=== PATIENT | male | born 1950 | race Caucasian/White ===

== ENCOUNTER 2017-02-13 13:19 | Emergency (ER) | payer OTHER ==
[~2017-02-13] VITALS: Ht 182.9 cm; Wt 102.0 kg
[~2017-02-13 13:19] MED LIST: ACETAMINOPHEN PO; ALAVERT PO; AMIODARONE PO; ASPIRIN PO; AVANDIA PO; CARDIZEM30 M1 PO; COLACE PO; COUMADIN PO; DIGOXIN125 MCG PO; FLEXERIL PO; GLUCOPHAGE XR500 MG PO; LANOXIN PO; LIPITOR PO; LISINOPRIL10 MG PO; OXYIR5 MG PO; TOPROL XL PO; TYLENOL EXTRA500 M1 PO; XARELTO20 MG PO; ZANTAC PO; ZOCOR PO
== END 2017-02-13 14:20 | disposition home or self-care (01) ==
LOC: CED 13:19
DX: S80.812A Abrasion, left lower leg, initial encounter (principal); L03.116 Cellulitis of left lower limb; Z88.1 Allergy status to other antibiotic agents; E11.9 Type 2 diabetes mellitus without complications; Z79.4 Long term (current) use of insulin; W26.9XXA Contact with unspecified sharp object(s), initial encounter; Y92.009 Unspecified place in unspecified non-institutional (private) residence as the place of occurrence of the external cause
CPT/HCPCS: 36415; 96361; 96374; 99283; J2405

== ENCOUNTER 2017-02-13 19:59 | Emergency (ER) | payer OTHER ==
--- NOTE | ~2017-02-13 | CT4 ---
[facility] A Service of [facility] RADIOLOGY TEXT RESULTS PATIENT: ANUEL MASON LOCATION: [facility] : 54 UNIT #: [id number] AGE: [address]: Osvaldo Eastman MD SEX: M ORDER DR: [id number] [facility] [address] [place], [place] [address] [id number] MR#: [id number] Acc #: [id number] NAME: ANUEL MASON. : 1950 SEX: M STUDY DATE/TIME: 02/13/2017 21:51 UNIT: [facility] ROOM: STUDY DESCRIPTION: CT Abd and Pelv Wo Cont Attending Physician: Osvaldo Eastman M.D. Referring Physician: Claudia Unger A.P.R.N. Ordering Physician: Osvaldo Eastman M.D. Primary Care Physician: Claudia Unger A.P.R.N. MEDICAL IMAGING REPORT This report is preliminary unless electronic signature is present EXAM CT abdomen and pelvis without contrast. INDICATIONS Left flank and kidney pain for the past 3 weeks with hematuria. PROCEDURE Unenhanced CT of the abdomen and pelvis. This CT exam was performed with one or more of the following radiation dose reduction techniques: automatic exposure control, adjustment of mA and/or kV according to patient size, and iterative reconstruction. COMPARISON None. FINDINGS Abdomen without contrast: Linear opacity in the right middle lobe with somewhat masslike opacities in both lung bases that have scattered areas of fat attenuation. The opacity in the left lung base measures 7.1 x 3.6 cm. The liver, spleen, adrenal glands, pancreas show no acute abnormality. There is a 7 mm calculus in the gallbladder, but no evidence for gallbladder inflammation. There are a few uncomplicated sigmoid diverticula. Appendix is normal. A 8 mm calculus in the proximal left ureter results in moderate hydronephrosis and perinephric stranding. Pelvis without contrast: No radiodense bladder calculus. No aggressive appearing bone lesion. IMPRESSION [facility] A Service of [facility] RADIOLOGY TEXT RESULTS PATIENT: ANUEL MASON LOCATION: [facility] #: [id number] : 54 UNIT #: [id number] AGE: [address]: Osvaldo Eastman MD SEX: M ORDER DR: 1. 8 mm obstructing calculus in the proximal left ureter with moderate hydronephrosis and perinephric stranding. 2. Lipoid pneumonia in the right middle lobe and both lung bases. Dictated by... Nicholas Argueta M.D. THIS IS AN ELECTRONICALLY VERIFIED REPORT Nicholas Argueta M.D. at 02/14/2017 9:54 PM EMILY/matti TD: 02/14/2017 06:52 JOB #: [id number] MEDICAL IMAGING REPORT Page 1 of 1 COPY
[2017-02-13 22:17] LABS: HEMATOCRIT 35.7 % (38.0-50.0); HEMOGLOBIN 11.7 gm/dL (13.0-16.0); MEAN CELL VOLUME 86.7 FL (83-96); MEAN CORPUSCULAR HEMOGLOBIN 28.4 PG (28-34); MEAN CORPUSCULAR HGB CONC 32.8 g/dL (30-36); MEAN PLATELET VOLUME 8.5 FL (6.5-11.5); RED BLOOD COUNT 4.12 X10e (3.90-5.60); RED CELL DISTRIBUTION WIDTH 13.3 % (11.0-15.5)
[2017-02-13 22:57] LABS: ALBUMIN SERUM 3.7 g/dL (3.5-5.0); BILIRUBIN,TOTAL 0.8 mg/dL (0.2-2.0); BUN/CREATININE RATIO 9.04; CALCIUM SERUM 8.7 mg/dL (8.4-10.2); CREATININE SERUM 2.1 mg/dL (0.6-1.4); GLOM FILT RATE Estimated 32.3 mL/min (>60); POTASSIUM 3.9 mmol/L (3.5-5.1); PROTEIN TOTAL SERUM 6.8 g/dL (6.0-8.3)
[2017-02-13 23:28] LABS: URINE SOURCE CLEAN CATCH
[2017-02-13 23:35] LABS: URINE APPEARANCE CLEAR; URINE BILIRUBIN NEG (NEG); URINE BLOOD NEG (NEG); URINE COLOR YELLOW; URINE GLUCOSE 500 MG/DL (NEG); URINE KETONE TRACE (NEG); URINE LEUKOCYTE ESTERASE NEG (NEG); URINE NITRATE NEG (NEG); URINE PROTEIN TRACE (NEG); URINE SPECIFIC GRAVITY 1.025 (1.003-1.035)
[2017-02-13 23:37] LABS: CULTURE INDICATED? NO
== END 2017-02-14 02:00 | disposition home or self-care (01) ==
LOC: CED 19:59
PROVIDERS: Emergency Medicine
DX: N13.2 Hydronephrosis with renal and ureteral calculous obstruction (principal); E11.9 Type 2 diabetes mellitus without complications; Z95.1 Presence of aortocoronary bypass graft
CPT/HCPCS: 36415; 74176; 80053; 81003; 85027; 96361; 96374; 99284; J2405